=== PATIENT | male | born 1935 | race Caucasian/White ===

== ENCOUNTER 2021-07-22 02:13 | Inpatient (IN) | payer OTHER ==
[~2021-07-22] VITALS: Ht 170.2 cm; Wt 74.8 kg
[~2021-07-22 02:13] MED LIST: ASPIR 8181 M1 PO; ATORVASTATIN CA40 MG PO; CAYENNE450 MG; COQ-10100 MG; IMDUR 30 MG TAB30 M1 PO; ISOSORBIDE PO; LIPITOR 20 MG T20 M1 PO; LISINOPRIL20 MG; METOPROLOL SUCC25 M1 PO; NITROGLYCERIN0.4 MG PO; PRINIVIL40 MG PO
[2021-07-22 04:22] VITALS: BP 158/66
[2021-07-22] MEDS ORDERED: LISINOPRIL20 MG PO (05:46)
[2021-07-22] MEDS ORDERED: RED YEAST RICE600 M1 PO (05:47)
[2021-07-22] MEDS ORDERED: COQ-10100 MG PO (05:51)
[2021-07-22] MEDS ORDERED: ZETIA10 MG PO (05:51)
[2021-07-22] MEDS ORDERED: ZINC30 M1 PO (05:52)
[2021-07-22] MEDS ORDERED: OSTEO BI-FLEX1 EAC1 PO (05:53)
[2021-07-22] MEDS ORDERED: CELECOXIB100 MG PO (05:53)
[2021-07-22] MEDS ORDERED: FLOMAX0.4 MG PO (05:54)
[2021-07-22] MEDS ORDERED: PROSCAR 5MG TABL5 MG PO (05:55)
[2021-07-22] MEDS ORDERED: NORVASC5 MG PO (05:55)
[2021-07-22] MEDS ORDERED: D3-200050 MCG PO (05:57)
[2021-07-22 06:24] LABS: HEMATOCRIT 45.5 % (42.0-52.0); HEMOGLOBIN 15.3 gm/dL (14.0-18.0); MCH 29.5 pg (26.0-34.0); MCHC 33.6 g/dL (28.0-37.0); MCV 87.8 fL (80.0-100.0); RBC 5.18 mil/uL (4.50-6.00); RDW 14.2 % (10.5-14.5); WBC 7.8 thou/uL (4.0-11.0)
[2021-07-22 06:35] LABS: CALCIUM 8.7 mg/dL (8.5-10.1); CREATININE 1.1 mg/dL (0.7-1.3); POTASSIUM 4.4 mmol/L (3.5-5.1)
[2021-07-22 07:08] LABS: CHOLESTEROL 203 mg/dL (<200); HDL CHOLESTEROL 38 mg/dL (>40); LDL CHOLESTEROL 127 mg/dL (<100); TC:HDL 5.3 Ratio (Not establshd); TRIGLYCERIDE 193 mg/dL (<150); VLDL 39 mg/dL (<40)
[2021-07-22 07:09] LABS: SERUM ASSESSMENT Clear
[2021-07-22 07:17] VITALS: BP 143/62
--- NOTE | 2021-07-22 07:40 | NUR ---
0400 ADMITTED PER CART FROM EMS. ADMISSION PROCESS INITIATED AND COMPLETED. 0430 NAFISA PIGMENT PRESSER HERE TO EVALUATE. 0510 PATIENT HAD EPISODE, NO CHEST PAIN. STATES LEFT SIDE FROM SHOULDER TO FEET ARE SHAKING. BP 173/77. 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 BLOOD SUGAR 100. NOTIFIED PIGMENT PRESSER , NO NEW ORDERS. SAT PATIENT UP IN BED AND STATES THAT GOT RID OF SYPTOMS. CONTINUE TO ASSES CLOSELY.
--- NOTE | 2021-07-22 09:02 | 2DMMODE ---
[facility] [address] [place] [address] 2 D/M-MODE ECHOCARDIOGRAM Name: DARIN LEVINE Room #: 215-P ADM IN M.R.#: [id number] Admission: 07/22/21 Attend Phys: Marquise Holman MD Discharge: Date of : 39 Report #: [id number] THIS REPORT FOR: cc: Jc Mcpherson,Jc Dawkins,Juan Connor MD [facility] ~ APPROVED REPORT Study performed: 07/22/2021 07:56:09 EXAM: Comprehensive 2D, Doppler, and color-flow Echocardiogram Patient Location: Bedside Room #: 215 Status: routine BSA: 1.86 HR: 53 bpm BP: 143/62 mmHg Rhythm: NSR Other Information Study Quality: Adequate Indications NSTEMI. CP. Elevated troponin. Hx: CABG 2D Dimensions RVDd: 35.07 mm IVSd: 12.42 (7-11mm) LVOT Diam: 19.79 (18-24mm) LVDd: 49.73 mm PWd: 12.03 (7-11mm) Ascending Ao: 32.21 (22-36mm) LVDs: 32.88 (25-40mm) Left Atrium: 44.35 (27-40mm) Volumes Left Atrial Volume (Systole) Single Plane 4CH: 45.84 mL Single Plane 2CH: 51.98 mL LA ESV Index: 28.00 mL/m2 Aortic Valve AoV Peak Enoch.: 3.29 m/s AO Peak Gr.: 43.39 mmHg LVOT Max P.99 mmHg AO Mean Gr.: 25.65 mmHg AO V2 Mean: 2.39 m/s LVOT Max V: 1.22 m/s [facility] [address] [address] 2 D/M-MODE ECHOCARDIOGRAM Name: DARIN LEVINE Room #: 215-P [facility] IN [facility]#: [id number] Admission: 07/22/21 Attend Phys: Taylor Shah Discharge: Date of : 39 Report #: [id number] V2 VTI: 89.45 cm DUC Vmax: 1.14 cm2 Mitral Valve E/A Ratio: 0.9 MV Decel. Time: 289.97 ms MV E Max Enoch.: 1.27 m/s MV A Enoch.: 1.39 m/s MV PHT: 84.09 ms IVRT: 110.73 ms Pulmonary Valve PV Peak Enoch.: 1.23 m/s PV Peak Gr.: 6.07 mmHg Pulmonary Vein P Vein S: 0.43 m/s P Vein D: 0.40 m/s P Vein S/D Ratio: 1.08 Tricuspid Valve TR Peak Enoch.: 2.18 m/s RAP Estimate: 5.00 mmHg TR Peak Gr.: 19.00 mmHg PA Pressure: 24.00 mmHg Left Ventricle The left ventricle is normal size. There is normal LV segmental wall motion. There is normal left ventricular wall thickness. Left ventricular systolic function is normal. LVEF is 65-70%. Mild diastolic dysfunction Right Ventricle The right ventricle is normal size. The right ventricular systolic function is normal. Atria Left atrium is mildly dilated. The right atrium size is normal. Aortic Valve Aortic valve is heavily calcified, moderately stenotic. Trace aortic regurgitation There is moderate valvular aortic stenosis. Calculated aortic valve area is 1.1 cm2 (Peak gradient of 43 mmHg, mean pressure gradient of 26 mmHg). Mitral Valve Moderate mitral annular calcification, mildly calcified leaflets. [facility] [address] [place] [address] 2 D/M-MODE ECHOCARDIOGRAM Name: LEVINEDARIN Room #: 215-P ADM IN .R.#: [id number] Admission: 07/22/21 Attend Phys: Taylor Shah Discharge: Date of : 39 Report #: [id number] Trace to mild mitral regurgitation. No evidence of mitral valve stenosis. Tricuspid Valve The tricuspid valve is normal in structure. Trace tricuspid regurgitation. Estimated PAP is 24mmHg. Pulmonic Valve The pulmonary valve is normal in structure. Trace pulmonic regurgitation. Great Vessels The aortic root is normal in size. The ascending aorta is normal in size. IVC is normal in size and collapses >50% with inspiration. Pericardium There is no pericardial effusion. <Conclusion> Left ventricular systolic function is normal. There is normal LV segmental wall motion. LVEF is 65-70%. Mild diastolic dysfunction Left atrium is mildly dilated. Aortic valve is heavily calcified, moderately stenotic. Trace insufficiency Calculated aortic valve area is 1.1 cm2 (Peak gradient of 43 mmHg, mean pressure gradient of 26 mmHg). Moderate mitral annular calcification, mildly calcified leaflets. Trace to mild mitral regurgitation. Trace tricuspid regurgitation. Estimated pulmonary artery pressure of 24mmHg. There is no pericardial effusion. <ELECTRONICALLY SIGNED> By: Juan Nair MD, FACC 07/22/21900 0 0 Juan Nair MD, FACC /INF
[2021-07-22 11:42] VITALS: BP 164/62
--- NOTE | 2021-07-22 13:53 | NUR ---
Met with patient, family at bedside. [facility] with increase blood pressure and increase heart rate. Patient lives in home alone. All needs on one level. 2 steps to enter from garage, one step to enter in home. Patient uses no assistive device. He cont to drive. 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 His PCP is Dr Jc Mcpherson. Patient aniticipates no dc needs. Casemgt following for dc planning.
--- NOTE | 2021-07-22 15:35 | EKG ---
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: : [phone] Requested By: Marquise Holman Order Number: [id number] MD: Anupam Rebollar Measurements Intervals [place] Rate: 60 P: 64 [place]: 179 QRS: 62 QRSD: 151 T: 45 QT: 460 QTc: 460 Interpretive Statements Sinus rhythm Right bundle branch block Probable inferior infarct, old Compared to ECG 04/22/2015 11:42:58 No significant changes Electronically Signed On 07-22-2021 15:35:41 CDT by Anupam Rebollar [email or web address] <ELECTRONICALLY SIGNED> By: Anupam Rebollar MD, [facility] 07/22/21 1535 [id number] Anupam Rebollar MD, FACC /EPI
--- NOTE | 2021-07-22 19:30 | NUR ---
STRESS TEST COMPLETE, FOLLOWING UP WITH CARDIOLOGY FOR FURTHER PLANS. PT MEETING GOALS.
[2021-07-22 19:40] VITALS: BP 147/78
--- NOTE | 2021-07-23 03:57 | NUR ---
PT A/O X4 AND IS UP AD [facility]. ROOM AIR, VSS, AFEBRILE. MEDICATION GIVEN PER MAR. DENIES C/O PAIN OR DISCOMFORT. CALL LIGHT IS WITHIN REACH. PT CALLS OUT APPROPRIATELY FOR ASSISTANCE.
[2021-07-23 04:36] VITALS: BP 134/75
[2021-07-23 06:10] LABS: ALBUMIN 3.6 g/dL (3.4-5.0); CALCIUM 8.6 mg/dL (8.5-10.1); DIRECT BILIRUBIN 0.1 mg/dL (<0.1-0.2); MAGNESIUM 1.9 mg/dL (1.8-2.4); PHOSPHORUS 3.5 mg/dL (2.5-4.9); POTASSIUM 4.3 mmol/L (3.5-5.1); TOTAL BILIRUBIN 1.1 mg/dL (0.2-1.0); TOTAL PROTEIN 6.2 g/dL (6.4-8.2)
[2021-07-23 07:50] VITALS: BP 135/72
[2021-07-23 11:43] VITALS: BP 151/79
[2021-07-23] MEDS ORDERED: NITROGLYCERIN0.4 MG SUBLING (12:25)
[2021-07-23 12:48] VITALS: BP 151/79
[2021-07-23] MEDS ORDERED: CELECOXIB100 MG PO (12:51)
--- NOTE | 2021-07-23 13:51 | NUR ---
PATIENT PROVIDED WITH DISCHARGE INSTRUCTIONS. HE VERBALIZED UNDERSTANDING AND HAD NO FURTHER QUESTIONS OR CONCERNS. IV ACCESS AND [place]GS[place] HOOPER DISCONTINUED. I WALKED PATIENT AND HIS FAMILY MEMBER OUT OF HOSPITAL.
[2021-07-23 23:06] LABS: GLYCOHEMOGLOBIN (HGB A1C) 6.2 % (4.8-5.6)
== END 2021-07-23 14:05 | disposition home or self-care (01) | DRG 307 ==
LOC: 2N 02:13
PROVIDERS: Internal Medicine; Nurse Practitioner Family; ADMIT Hospitalist; ATTEND Hospitalist
DX: I35.0 Nonrheumatic aortic (valve) stenosis (principal); I25.10 Atherosclerotic heart disease of native coronary artery without angina pectoris; R77.8 Other specified abnormalities of plasma proteins; I10 Essential (primary) hypertension; E78.5 Hyperlipidemia, unspecified; N40.0 Benign prostatic hyperplasia without lower urinary tract symptoms; Z60.2 Problems related to living alone; R53.81 Other malaise; E55.9 Vitamin D deficiency, unspecified; M17.0 Bilateral primary osteoarthritis of knee; Z79.1 Long term (current) use of non-steroidal anti-inflammatories (NSAID); Z95.1 Presence of aortocoronary bypass graft; Z88.6 Allergy status to analgesic agent; Z86.16 Personal history of COVID-19; Z79.82 Long term (current) use of aspirin; Z79.899 Other long term (current) drug therapy
CPT/HCPCS: 10081